=== PATIENT | female | born 1985 | race Caucasian/White ===

== ENCOUNTER 2019-02-21 10:31 | Emergency (ER) | payer OTHER ==
[~2019-02-21] VITALS: Ht 160 cm; Wt 68.0 kg
[2019-02-21 10:34] VITALS: BP 128/68
--- NOTE | 2019-02-21 10:43 | NUR ---
PATIENT AMBULATED TO BED 2 AT THIS TIME.
--- NOTE | 2019-02-21 10:50 | NUR ---
33/F C/O RT FLANK PAIN AND SUPRAPUBIC PAIN ON/OFF X 1 MONTH. PAIN /. DENIES INJURY. HAS URINARY FREQUENY, URGENCY, DYSURIA. DENIES BLOOD IN URINE. WAS TX FOR UTI 2 WKS AGO AND COMPLETED ABX BUT NO RELIEF OF SYMPTOMS. DENIES RECENT FEVER. REPORTS NAUSEA AND DIARRHEA X1 TODAY. NO VOMITING. NORMAL BMs BEFORE TODAY. PMH: ASTHMA RX: ADVAIR GARCIA
--- NOTE | 2019-02-21 11:09 | NUR ---
DR. العلي SPEAKING WITH PT AT BEDSIDE.
[2019-02-21 11:25] VITALS: BP 128/68
[2019-02-21 12:06] LABS: APPEARANCE,URINE CLEAR (CLEAR); BILIRUBIN,URINE NEGATIVE (NEGATIVE); BLOOD, URINE NEGATIVE (NEGATIVE); COLOR,URINE YELLOW (YELLOW); LEUKOCYTE ESTERASE ,URINE NEGATIVE (NEGATIVE); NITRITE, URINE NEGATIVE (NEGATIVE); UGLUCOSE NEGATIVE (NEGATIVE)
[2019-02-23 07:00] LABS: CHLAMYDIA TRACHOMATIS AMP DNA Negative (Negative)
== END 2019-02-21 11:24 | disposition home or self-care (01) ==
LOC: MED 10:31
DX: N39.0 Urinary tract infection, site not specified (principal); J45.909 Unspecified asthma, uncomplicated; Z88.6 Allergy status to analgesic agent; Z88.8 Allergy status to other drugs, medicaments and biological substances
CPT/HCPCS: 36415; 81003; 81025; 87086; 87491; 99283

== ENCOUNTER 2019-07-22 18:35 | Emergency (ER) | payer OTHER ==
[~2019-07-22] VITALS: Ht 160 cm; Wt 68.0 kg
[2019-07-22 18:45] VITALS: BP 134/90
--- NOTE | 2019-07-22 18:54 | NUR ---
Pt c/o left frontal and left maxillary sinus pain, left-sided headache with throbbing sensation, greenish/odorous rhinorrhea, and fatigue for 2 weeks. See by pcp 2 weeks ago via phone consultation and diagnosed with sinunitis and tx with Amoxicillin for 10 days with slight relief. Pt also c/o a little wheezes and nausea since today. Denies fever, cough, CP, SOB, diarrhea or vomiting. Left frontal sinus tenderness and left maxillary sinus tenderness on palpation. Slight tenderness on palpation to left posterior auricular area. No lymph nodes on neck or posterior auricular area bilateral. PATIENT STATES PAIN OF 6/10 AT THIS TIME; VSS; PATIENT POSITIONED FOR COMFORT; HOB ELEVATED; BEDRAILS UP X1; BED DOWN. ER MD MADE AWARE OF PT STATUS.
--- NOTE | 2019-07-22 19:13 | NUR ---
change of shift report received from Sherlyn CAMERON.
--- NOTE | 2019-07-22 20:09 | NUR ---
Patient discharged with v/s stable. Written and verbal after care instructions given and explained. PT SENT HOME WITH WORK EXCUSAL FORM AND TO RETURN WORK NO LATER THAN 07/24/2019 Patient alert, oriented and verbalized understanding of instructions. Ambulatory with steady gait. All questions addressed prior to discharge. ID band removed. Patient advised to follow up with PMD. Rx of AUGMENTIN given. Patient educated on indication of medication including possible reaction and side effects. Opportunity to ask questions provided and answered.
[2019-07-22 20:10] VITALS: BP 128/89
== END 2019-07-22 20:10 | disposition home or self-care (01) ==
LOC: MED 18:35
DX: J01.00 Acute maxillary sinusitis, unspecified (principal); J45.909 Unspecified asthma, uncomplicated; Z88.6 Allergy status to analgesic agent; Z88.8 Allergy status to other drugs, medicaments and biological substances
CPT/HCPCS: 99283

== ENCOUNTER 2019-09-03 16:25 | Emergency (ER) | payer OTHER ==
[~2019-09-03] VITALS: Ht 167.6 cm; Wt 68.0 kg
[2019-09-03 16:48] VITALS: BP 122/66
--- NOTE | 2019-09-03 16:55 | NUR ---
33 Y/O FEMALE C/O LEFT SIDED FACIAL PAIN FOR X2 DAYS. PT STATES SHE BEING TREATED FOR SINUS INFECTION WITH ANTIBX SINCE LAST TUESDAY. STATES FACIAL PAIN IS ONLY ON LEFT SIDE, FEELS LIKE A PRESSURE PAIN. PT HAS BEEN USING IBUPROFEN FOR THE PAIN, PAIN IS CURRENTLY 2/10. NO FACIAL DROOPING NOTED. SMILE IS SYMMETRICAL. 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 NO DEFORMITY NOTED ON FACE. SKIN IN TACT PMH: ASTHMA
--- NOTE | 2019-09-03 17:37 | NUR ---
Patient discharged with v/s stable. Written and verbal after care instructions given and explained. Patient alert, oriented and verbalized understanding of instructions. Ambulatory with steady gait. All questions addressed prior to discharge. ID band removed. Patient advised to follow up with PMD. Rx of TRAMADOL, KEFLEX given. Patient educated on indication of medication including possible reaction and side effects. Opportunity to ask questions provided and answered.
[2019-09-03 17:38] VITALS: BP 122/66
== END 2019-09-03 17:37 | disposition home or self-care (01) ==
LOC: MED 16:25
DX: J32.9 Chronic sinusitis, unspecified (principal); N39.0 Urinary tract infection, site not specified; J45.909 Unspecified asthma, uncomplicated; Z88.6 Allergy status to analgesic agent
CPT/HCPCS: 81002; 87086; 99283

== ENCOUNTER 2019-11-10 13:41 | Emergency (ER) | payer OTHER ==
[~2019-11-10] VITALS: Ht 160 cm; Wt 68.0 kg
[2019-11-10 13:45] VITALS: BP 139/95
--- NOTE | 2019-11-10 14:31 | NUR ---
Patient discharged with v/s stable. Written and verbal after care instructions given and explained. Patient alert, oriented and verbalized understanding of instructions. Ambulatory with steady gait. All questions addressed prior to discharge. ID band removed. Patient advised to follow up with PMD. Rx of Tobramycin and Naprosyn given. Patient educated on indication of medication including possible reaction and side effects. Opportunity to ask questions provided and answered. No nursing provided in our ER.
== END 2019-11-10 14:31 | disposition home or self-care (01) ==
LOC: MED 13:41
DX: H10.9 Unspecified conjunctivitis (principal); J45.909 Unspecified asthma, uncomplicated; Z88.6 Allergy status to analgesic agent
CPT/HCPCS: 99283

== ENCOUNTER 2019-12-07 11:53 | Emergency (ER) | payer OTHER ==
[~2019-12-07] VITALS: Ht 160 cm; Wt 68.0 kg
[2019-12-07 11:57] VITALS: BP 145/79
== END 2019-12-07 12:19 | disposition home or self-care (01) ==
LOC: MED 11:53
DX: L03.115 Cellulitis of right lower limb (principal); R21 Rash and other nonspecific skin eruption; J45.909 Unspecified asthma, uncomplicated; Z88.8 Allergy status to other drugs, medicaments and biological substances; Z88.6 Allergy status to analgesic agent
CPT/HCPCS: 99283

== ENCOUNTER 2019-12-09 21:16 | Emergency (ER) | payer OTHER ==
[~2019-12-09] VITALS: Ht 160 cm; Wt 72.1 kg
[2019-12-09 21:20] VITALS: BP 148/97
--- NOTE | 2019-12-09 21:42 | NUR ---
C/O DIZZINESS & CHILLS X 3 HRS - PT WAS SEEN HERE COUPLE OF DAYS AGO FOR SPIDER BITE WAS TOLD TO COME BACK IF SHE WAS FEELING DIZZY. +CHILLS, +NAUSEA. DENIES ANY DYSURIA, BLOOD IN STOOL OR IN URINE. VSS. DENIES ANY BLURRY VISION. STEADY GAIT BUT C/O OF DIZZINESS. PMH: ASTHMA AX: TYLENOL & NAPROXEN, IBUPROFEN
--- NOTE | 2019-12-09 22:08 | NUR ---
pt ambulated to restroom w/ steady gait.
[2019-12-09 22:16] LABS: BASOPHILS % (AUTO) 0.3 % (0.0-2.0); EOSINOPHILS # (AUTO) 0.5 K/uL (0-0.4); EOSINOPHILS % (AUTO) 5.4 % (0.0-4.0); HEMATOCRIT 39.8 % (36-48); HEMOGLOBIN 13.6 g/dL (12.0-16.0); LYMPHOCYTES # (AUTO) 3.1 K/uL (2.5-16.5); MEAN CORPUSCULAR HEMOGLOBIN 33 pg (27-31); MEAN CORPUSCULAR HGB CONC 34 g/dL (33-37); MEAN CORPUSCULAR VOLUME 95.2 fL (80-94); MONOCYTES # (AUTO) 0.3 K/uL (0.8-1.0); MONOCYTES % (AUTO) 3.6 % (1.7-9.3); NEUTROPHILS # (AUTO) 4.8 K/uL (1.8-7.7); NEUTROPHILS % (AUTO) 54.7 % (42.2-75.2); PLATELET COUNT (AUTO) 209 K/uL (140-450); RED BLOOD CELL COUNT(AUTO) 4.19 MIL/uL (4.20-5.40); WHITE BLOOD COUNT (AUTO) 8.7 K/uL (4.8-10.8)
--- NOTE | 2019-12-09 22:17 | NUR ---
EKG BEING PERFORMED BY EMT AT BEDSIDE.
[2019-12-09 22:27] LABS: ANION GAP 13.4 (8-16); CARBON DIOXIDE 26.4 mmol/L (21-32); CREATININE 0.8 mg/dL (0.6-1.3); POTASSIUM 3.8 mmol/L (3.5-5.1)
[2019-12-09 23:03] VITALS: BP 148/97
--- NOTE | 2019-12-09 23:03 | NUR ---
Patient discharged with v/s stable. Written and verbal after care instructions given and explained. Patient verbalized understanding. Ambulatory with steady gait. All questions addressed prior to discharge. Advised to follow up with PMD.
== END 2019-12-09 23:03 | disposition home or self-care (01) ==
LOC: MED 21:16
DX: R42 Dizziness and giddiness (principal)
CPT/HCPCS: 36415; 80048; 81025; 84484; 85025; 93005; 99284

== ENCOUNTER 2020-01-14 21:18 | Emergency (ER) | payer OTHER ==
[~2020-01-14] VITALS: Ht 160 cm; Wt 68.0 kg
[2020-01-14 21:29] VITALS: BP 130/65
--- NOTE | 2020-01-14 21:33 | NUR ---
triaged and waiting in tent.
--- NOTE | 2020-01-14 21:38 | NUR ---
Pt taken to bed 2 with steady gait.
--- NOTE | 2020-01-14 21:38 | NUR ---
see complete assessment.
--- NOTE | 2020-01-14 21:42 | NUR ---
X-RAY AT BEDSIDE
--- NOTE | 2020-01-14 22:28 | NUR ---
PT C/O SEVERE HEADACHE 11/21, MD MCCRAY AWARE
[2020-01-14] MEDS ORDERED: traMADol 50 MG TAB PO ONE (22:30)
--- NOTE | 2020-01-14 22:30 | NUR ---
RESPIRATORY AT BEDSIDE FOR ABG
--- NOTE | 2020-01-14 23:02 | NUR ---
PT STILL HAVING 9/10 HEADACHE, MED DID NOT HELP WITH PAIN
[2020-01-14 23:47] VITALS: BP 126/67
== END 2020-01-14 23:47 | disposition home or self-care (01) ==
LOC: MED 21:18
DX: R06.02 Shortness of breath (principal); R50.9 Fever, unspecified; J45.909 Unspecified asthma, uncomplicated; Z88.6 Allergy status to analgesic agent; Z88.8 Allergy status to other drugs, medicaments and biological substances
CPT/HCPCS: 36600; 71045; 82803; 99284; Q0092

== ENCOUNTER 2020-07-27 21:43 | Emergency (ER) | payer OTHER ==
[~2020-07-27] VITALS: Ht 160 cm; Wt 68.9 kg
[2020-07-27 21:47] VITALS: BP 121/75
[2020-07-27 22:15] VITALS: BP 121/75
== END 2020-07-27 22:15 | disposition home or self-care (01) ==
LOC: MED 21:43
DX: R07.9 Chest pain, unspecified (principal); R00.2 Palpitations; J45.909 Unspecified asthma, uncomplicated; Z88.6 Allergy status to analgesic agent
CPT/HCPCS: 93005; 99283

== ENCOUNTER 2020-10-12 04:51 | Emergency (ER) | payer OTHER ==
[~2020-10-12] VITALS: Ht 152.4 cm; Wt 68.0 kg
[2020-10-12 04:53] VITALS: BP 121/73
--- NOTE | 2020-10-12 04:53 | NUR ---
TO BED AMBULATORY
--- NOTE | 2020-10-12 05:38 | NUR ---
PER JERONIMO, ADMIT STORY EDITOR-- PT STATED "I'M LEAVING". PATIENT LEFT WITHOUT BEING SEEN BY DR. MILES. NO FURTHER CARE PROVIDED FOR PATIENT.
[2020-10-13] MEDS ORDERED: CEPH-588 PO (15:58)
== END 2020-10-12 05:38 | disposition left against medical advice (07) ==
LOC: MED 04:51
DX: R06.02 Shortness of breath (principal); Z20.822 Contact with and (suspected) exposure to COVID-19

== ENCOUNTER 2020-10-13 13:04 | Emergency (ER) | payer OTHER ==
[~2020-10-13] VITALS: Ht 160 cm; Wt 69.9 kg
[2020-10-13 13:39] VITALS: BP 140/72
--- NOTE | 2020-10-13 13:45 | NUR ---
34 Y/O FEMALE C/O SOB, CHEST PAIN, AND DIARRHEA X3DAYS. PT STATES SHE USED ASTHMA INHALER AND DID NOT HAVE RELIEVE OF SYMPTOMS. DENIES N/V, DENIES FEVER/CHILLS. LUNGS ARE CLEAR THROUGHOUT SP02 98% ON RA. PMH: ASTHMA ALLERGIES: ACETAMINOPHEN, IBUPROFEN, NAPROXEN
--- NOTE | 2020-10-13 15:11 | NUR ---
DR. WHITLEY WITH PT FOR FURTHER EVALUATION.
[2020-10-13] MEDS ORDERED: CEPH-588 PO (15:58)
[2020-10-13 16:07] VITALS: BP 127/72
--- NOTE | 2020-10-13 16:10 | NUR ---
Patient discharged with v/s stable. Written and verbal after care instructions given UTI and explained. Patient alert, oriented and verbalized understanding of instructions. Ambulatory with steady gait. All questions addressed prior to discharge. ID band removed. Patient advised to follow up with PMD. Rx of KEFLEX 500KMG PO QID FOR 7DAYS given. Patient educated on indication of medication including possible reaction and side effects. Opportunity to ask questions provided and answered.
== END 2020-10-13 16:10 | disposition home or self-care (01) ==
LOC: MED 13:04
DX: N39.0 Urinary tract infection, site not specified (principal); R05 Cough
CPT/HCPCS: 81002; 81025; 87086; 93005; 99284